=== PATIENT | female | born 1950 | race Hispanic/Latino ===

== ENCOUNTER 2018-06-28 12:51 | Outpatient (CLI) | payer OTHER ==
--- NOTE | 2018-06-28 14:06 | Ultrasound Report ---
Right mammogram and right breast ultrasound: The patient was recalled for right asymmetry. Additional CC compression, exaggerated CC view and a lateral compression images are obtained. There is no discrete nodule seen in the lateral projection. A question of a small nodular area identified in the lateral CC projection. Whole breast ultrasound demonstrates a circumscribed and somewhat elongated anechoic 6.6 mm nodule in the 12:00 position which does not appear to correspond with the mammographic finding. In the 10:00 position almost in the axilla there is a homogeneously hypoechoic, thick wall circumscribed nodule. It is markedly elongated measuring 17 mm. There are moderately dilated ducts in the lateral breast. Impression: Questionable mammographic nodule with no correlating ultrasound finding. Small left breast cyst, dilated ducts, and benign-appearing nodule noted in the axilla on ultrasound. None of these appear suspicious. Recommendation: Repeat mammogram in 6 months to reevaluate for any progressive change. Ultrasound, if necessary. BI-RADS CATEGORY: 3 = Probably benign ACR BI-RADS MAMMOGRAPHIC CODES: 0 = Needs additional imaging evaluation; 1 = Negative; 2 = Benign; 3 = Probably benign; 4 = Suspicious; 5 = Malignant; 6 = Known biopsy-proven malignancy COMMENT: 1. Dense breast tissue, i.e., adenosis, fibrocystic changes, etc., may obscure an underlying neoplasm. 2. Approximately 10% of cancers are not detected with mammography. 3. A negative mammography report should not delay biopsy if a clinically suspicious mass is present.
== END 2018-06-28 12:52 | disposition home or self-care (01) ==
LOC: MAMMO 12:51
PROVIDERS: ATTEND Internal Medicine
DX: N60.02 Solitary cyst of left breast (principal); M19.90 Unspecified osteoarthritis, unspecified site

== ENCOUNTER 2018-12-13 11:00 | Outpatient (CLI) | payer OTHER ==
--- NOTE | 2018-12-13 11:50 | Mammography Report ---
RIGHT DIGITAL DIAGNOSTIC MAMMOGRAM with CAD: 12/13/18 11:00:00 CLINICAL: 6 month followup of a low density nodule. COMPARISON:06/28/18 FINDINGS: The breast is heterogeneously dense, which may obscure small masses. The asymmetry in the outer breast on some views appears to be either normal fibroglandular tissue or a small lymph node. No suspicious finding. IMPRESSION: No mammographic evidence of malignancy. BI-RADS CATEGORY: 1 - - Negative RECOMMENDATION: Return to routine mammographic screening. ACR BI-RADS MAMMOGRAPHIC CODES: 0 = Needs additional imaging evaluation; 1 = Negative; 2 = Benign; 3 = Probably benign; 4 = Suspicious; 5 = Malignant; 6 = Known biopsy-proven malignancy COMMENT: 1. Dense breast tissue, i.e., adenosis, fibrocystic changes, etc., may obscure an underlying neoplasm. 2. Approximately 10% of cancers are not detected with mammography. 3. A negative mammography report should not delay biopsy if a clinically suspicious mass is present. COMMENT: Patient follow-up letters are generated by our [employer] application.
== END 2018-12-13 11:01 | disposition home or self-care (01) ==
LOC: MAMMO 11:00
PROVIDERS: ATTEND Internal Medicine
DX: R92.8 Other abnormal and inconclusive findings on diagnostic imaging of breast (principal); M19.90 Unspecified osteoarthritis, unspecified site; Z87.891 Personal history of nicotine dependence

== ENCOUNTER 2019-07-25 09:07 | Outpatient (CLI) | payer OTHER ==
--- NOTE | 2019-07-25 14:04 | Mammography Report ---
DIGITAL SCREENING MAMMOGRAM WITH CAD, 07/25/2019 INDICATION: Routine screening mammography. TECHNIQUE: Digital bilateral 2D mammography was obtained in the craniocaudal and mediolateral obliq ue projections. This examination was interpreted with the benefit of Computer-Aided Detection analysi s. COMPARISON: 06/14/2018 FINDINGS: Breast Density: The breasts are heterogeneously dense, which may obscure small masses. There is no evidence of dominant mass, suspicious calcifications or architectural distortion in eithe r breast. Scattered bilateral benign calcifications. IMPRESSION: No mammographic evidence of malignancy. Follow up recommendation: Routine yearly A "normal" or negative report should not discourage follow up or biopsy of a clinically significant f inding. A written summary of these findings will be mailed to the patient. The patient will be entered into a mammography reporting system which will generate a reminder letter for the patient's next appointmen t at the appropriate interval. The [employer] recommends yearly mammograms starting at age 40 and continuing as l radha as a woman is in good health. Breast MRI is recommended for women with an approximate 20-25% or greater lifetime risk of breast cancer, including women with a strong family history of breast or ova lynne cancer or who have been treated for Hodgkin's disease. Signer Name: Tae Trevizo MD Signed: 07/25/2019 1:59 PM Workstation Name: [id number]
== END 2019-07-25 09:08 | disposition home or self-care (01) ==
LOC: MAMMO 09:07
PROVIDERS: ATTEND Internal Medicine
DX: Z12.31 Encounter for screening mammogram for malignant neoplasm of breast (principal); M19.90 Unspecified osteoarthritis, unspecified site
CPT/HCPCS: 77067

== ENCOUNTER 2021-07-01 12:37 | Outpatient (CLI) | payer OTHER ==
--- NOTE | 2021-07-01 16:19 | Mammography Report ---
DIGITAL SCREENING MAMMOGRAM WITH CAD, 07/01/2021 CLINICAL INFORMATION / INDICATION: Routine screening mammography. TECHNIQUE: Digital bilateral 2D mammography was obtained in the craniocaudal and mediolateral obliqu e projections. This examination was interpreted with the benefit of Computer-Aided Detection analysis . COMPARISON: 07/25/2019, 06/14/2018, 09/15/2016 FINDINGS: Breast Density: The breasts are heterogeneously dense, which may obscure small masses. No dominant mass, suspicious calcifications, or architectural distortion in either breast. IMPRESSION: No mammographic evidence of malignancy. Follow up recommendation: Routine yearly BI-RADS Category 1: Negative. A "normal" or negative report should not discourage follow up or biopsy of a clinically significant f inding. A written summary of these findings will be mailed to the patient. The patient will be entered into a mammography reporting system which will generate a reminder letter for the patient's next appointmen t at the appropriate interval. The [employer] recommends yearly mammograms starting at age 40 and continuing as l radha as a woman is in good health. Breast MRI is recommended for women with an approximate 20-25% or greater lifetime risk of breast cancer, including women with a strong family history of breast or ova lynne cancer or who have been treated for Hodgkin's disease. Signer Name: Hillary Salguero MD Signed: 07/01/2021 4:15 PM Workstation Name: [id number]
== END 2021-07-01 12:38 | disposition home or self-care (01) ==
LOC: MAMMO 12:37
PROVIDERS: ATTEND Internal Medicine
DX: Z12.31 Encounter for screening mammogram for malignant neoplasm of breast (principal); N64.89 Other specified disorders of breast
CPT/HCPCS: 77067